=== PATIENT | male | born 1965 | race African-American/Black ===

== ENCOUNTER 2016-05-02 21:48 | Emergency (ER) | payer OTHER ==
[~2016-05-02] VITALS: Ht 180.3 cm; Wt 145.2 kg
[~2016-05-02 21:48] MED LIST: ALEVE220 MG PO; ANTACID325 MG PO; AUGMENTIN 875875 M1 PO; BACTRIM DS TAB1 EACH PO; FLEXERIL PO; GABAPENTIN800 M1 PO; GLUCOPHAGE; HYDROCERIN CREA1 JAR; IBUPROFEN 200200 M1 PO; KEFLEX500 MG PO; LISINOPRIL10 MG PO; LOVASTATIN 20 M20 MG PO; NORCO 5-325 TA1 EACH PO; PAIN CREAM
[2016-05-02] MEDS ORDERED: FLEXERIL PO (21:54)
[2016-05-02 22:28] LABS: URINE BILIRUBIN NEGATIVE (Negative); URINE BLOOD NEGATIVE (Negative); URINE COLOR YELLOW; URINE GLUCOSE-RANDOM* NEGATIVE (Negative); URINE KETONES NEGATIVE (Negative); URINE NITRITE NEGATIVE (Negative); URINE PROTEIN (DIPSTICK) NEGATIVE (Negative); URINE SPECIFIC GRAVITY 1.025 (1.003-1.035); URINE UROBILINOGEN 0.2 E.U./dl (0.2-1.0)
[2016-05-02 23:21] VITALS: BP 136/98
== END 2016-05-02 23:26 | disposition home or self-care (01) ==
LOC: ER 21:48
PROVIDERS: Nurse Practitioner
DX: R35.0 Frequency of micturition (principal); E11.9 Type 2 diabetes mellitus without complications; F17.210 Nicotine dependence, cigarettes, uncomplicated

== ENCOUNTER 2016-11-13 15:57 | Emergency (ER) | payer OTHER ==
[~2016-11-13] VITALS: Ht 180.3 cm; Wt 133.8 kg
[2016-11-13] MEDS ORDERED: HYDROCODONE-AP1 EAC6 PO (16:02)
[2016-11-13] MEDS ORDERED: LOVASTATIN 20 M20 MG PO (16:02)
[2016-11-13] MEDS ORDERED: METFORMIN HCL500 MG PO (16:02)
[2016-11-13] MEDS ORDERED: MOBIC15 MG PO (16:39)
[2016-11-13 17:32] VITALS: BP 131/81
== END 2016-11-13 16:41 | disposition home or self-care (01) ==
LOC: ER 15:57
DX: S63.501A Unspecified sprain of right wrist, initial encounter (principal); S00.531A Contusion of lip, initial encounter; E11.9 Type 2 diabetes mellitus without complications; F17.210 Nicotine dependence, cigarettes, uncomplicated; F10.99 Alcohol use, unspecified with unspecified alcohol-induced disorder; Y04.2XXA Assault by strike against or bumped into by another person, initial encounter; Y93.89 Activity, other specified; Y92.89 Other specified places as the place of occurrence of the external cause; Y99.8 Other external cause status

== ENCOUNTER 2019-05-02 13:09 | Emergency (ER) | payer OTHER ==
[~2019-05-02] VITALS: Ht 180.3 cm; Wt 145.2 kg
[~2019-05-02 13:09] MED LIST changes: +HYDROCODONE-AP1 EAC6 PO; +METFORMIN HCL500 MG PO; +MOBIC15 MG PO
[2019-05-02] MEDS ORDERED: NORVASC 2.5 MG2.5 M1 PO (13:15)
[2019-05-02] MEDS ORDERED: FLAGYL500 M1 PO (13:53)
[2019-05-02] MEDS ORDERED: DOXYCYCLINE 10100 MG PO (13:53)
[2019-05-02] MEDS ORDERED: TRAMADOL 50 MG50 MG PO ×2 (13:53→13:58)
[2019-05-02 14:26] VITALS: BP 106/54
== END 2019-05-02 14:32 | disposition home or self-care (01) ==
LOC: ER 13:09
DX: L02.31 Cutaneous abscess of buttock (principal); E11.9 Type 2 diabetes mellitus without complications; G47.30 Sleep apnea, unspecified; F17.210 Nicotine dependence, cigarettes, uncomplicated

== ENCOUNTER 2020-09-03 15:20 | Emergency (ER) | payer OTHER ==
[~2020-09-03] VITALS: Ht 180.3 cm; Wt 145.2 kg
[~2020-09-03 15:20] MED LIST changes: +DOXYCYCLINE 10100 MG PO; +FLAGYL500 M1 PO; +NORVASC 2.5 MG2.5 M1 PO; +TRAMADOL 50 MG50 MG PO
[2020-09-03 15:26] VITALS: BP 161/100
[2020-09-03] MEDS ORDERED: MOBIC7.5 MG PO (16:04)
[2020-09-03] MEDS ORDERED: ZANAFLEX4 MG PO (16:04)
== END 2020-09-03 16:24 | disposition home or self-care (01) ==
LOC: ER 15:20
DX: M62.830 Muscle spasm of back (principal); M54.2 Cervicalgia; M54.6 Pain in thoracic spine; M25.511 Pain in right shoulder; F17.210 Nicotine dependence, cigarettes, uncomplicated; Z79.899 Other long term (current) drug therapy; E11.9 Type 2 diabetes mellitus without complications; Z79.2 Long term (current) use of antibiotics; X58.XXXA Exposure to other specified factors, initial encounter; Y93.89 Activity, other specified; Y92.89 Other specified places as the place of occurrence of the external cause; Y99.8 Other external cause status

== ENCOUNTER 2021-05-26 19:03 | Emergency (ER) | payer OTHER ==
[~2021-05-26] VITALS: Ht 180.3 cm; Wt 145.2 kg
[~2021-05-26 19:03] MED LIST changes: +MOBIC7.5 MG PO; +ZANAFLEX4 MG PO
[2021-05-26] MEDS ORDERED: METHOCARBAMOL500 M2 PO (21:32)
[2021-05-26 21:35] VITALS: BP 122/73
== END 2021-05-26 21:37 | disposition home or self-care (01) ==
LOC: ER 19:03
DX: S16.1XXA Strain of muscle, fascia and tendon at neck level, initial encounter (principal); S46.911A Strain of unspecified muscle, fascia and tendon at shoulder and upper arm level, right arm, initial encounter; S29.011A Strain of muscle and tendon of front wall of thorax, initial encounter; E11.9 Type 2 diabetes mellitus without complications; F17.210 Nicotine dependence, cigarettes, uncomplicated; Z79.84 Long term (current) use of oral hypoglycemic drugs; Z79.899 Other long term (current) drug therapy; V49.9XXA Car occupant (driver) (passenger) injured in unspecified traffic accident, initial encounter; Y93.89 Activity, other specified; Y92.89 Other specified places as the place of occurrence of the external cause; Y99.8 Other external cause status